=== PATIENT | male | born 1950 ===

== ENCOUNTER → 2023-02-09 | Emergency (ER) | payer OTHER ==
[~2023-02-09] VITALS: Ht 177.8 cm; Wt 62.1 kg
[~2023-02-09] MED LIST: GERITOL COMPLE1 EACH PO; GOCOVRI68.5 MG; LIPITOR20 MG PO; NORVASC5 MG PO; PROSCAR5 MG PO; TAMS0.4C PO; ZOLOFT50 MG PO
== END | disposition left against medical advice (07) ==
LOC: ER 15:06
DX: Z53.21 Procedure and treatment not carried out due to patient leaving prior to being seen by health care provider (principal)